=== PATIENT | male | born 1975 | race Caucasian/White ===

== ENCOUNTER 2020-07-29 12:05 | Emergency (ER) | payer BC ==
[~2020-07-29] VITALS: Ht 180.3 cm; Wt 124.2 kg
[2020-07-29] MEDS ORDERED: LIDOCAINE 1% MDV 20ML VIAL SC ONE (13:30)
[2020-07-29 14:20] VITALS: BP 132/78
== END 2020-07-29 14:59 | disposition home or self-care (01) ==
LOC: M ED 12:05
DX: S01.511A Laceration without foreign body of lip, initial encounter (principal); W22.8XXA Striking against or struck by other objects, initial encounter; Y92.830 Public park as the place of occurrence of the external cause